=== PATIENT | male | born 1945 | race Caucasian/White ===

== ENCOUNTER → 2018-12-13 | Outpatient (CLI) | payer OTHER ==
[~2018-12-13] VITALS: Ht 175.3 cm; Wt 106.6 kg
[~2018-12-13] MED LIST: CELEXA20 MG PO; CENTRUM SILVER1 EAC4 PO; LEVAQUIN 500 M500 M2 PO; LEVOXYL112 MCG PO; PRAVACHOL20 MG PO
--- NOTE | 2018-12-14 14:06 | PATH ---
[facility] [address] [place] [address] PATHOLOGY RPT PROCEDURE Name: JOAOROBERTA Room #: REG BAUTISTA Geller#: [id number] ������������������ Admission: 12/13/18 ������������������ Date of : 47 Discharge: Report #: [id number] Path Case #: [id number] [facility] Accession Number: [id number] . 01 Material submitted: . PART A: colon - BIOPSY POLYP AT ASCENDING COLON. Modifiers: ascending PART B: colon - BIOPSY POLYP AT SIGMOID COLON X2. Modifiers: sigmoid . 01 Clinical history: . Pre-OP DX: Hematochezia Post-OP DX: Colon polyps, diverticulosis, hemorrhoid . 02 Diagnosis: A. "BX polyp at ascending colon", biopsy: - Tubular adenoma; no high-grade dysplasia. . B. "BX polyp at sigmoid colon x2", biopsy: - Hyperplastic polyp. (CLW:luz; 12/14/2018) QTP/12/14/2018 . 02 Electronically signed: . Reva Franklin MD, Pathologist NPI- [id number] . 01 Gross description: . A. Received in formalin labeled "Roberta Lawrence, BX polyp at ascending colon," is a single segment of moulton soft tissue measuring 0.4 cm in maximum dimension. The specimen is entirely submitted in cassette A1. . B. Received in formalin labeled "Roberta Lawrence, BX polyp at sigmoid colon x2," are 2 segments of moulton soft tissue measuring 0.7 x 0.3 x 0.2 cm in aggregate dimensions and ranging from 0.3 to 0.4 cm in maximum dimension. The specimen is submitted entirely in cassette B1. (TSD; 12/13/2018) TOB/TOB . 02 Pathologist provided ICD-10: D12.2, K63.5 . 02 CPT . 598205, [id number] Specimen Comment: A courtesy copy of this report has been sent to Specimen Comment: [phone], . Specimen Comment: Report sent to / DR LINK Performed at: [address] [place] [address] PATHOLOGY RPT PROCEDURE Name: ROBERTA LAWRENCE Room #: REG BAUTISTA Geller#: [id number] ������������������ Admission: 12/13/18 ������������������ Date of : 47 Discharge: Report #: [id number] Path Case #: [id number] [address] [facility] [address], [place], [place] [id number] MD Chon Joseph MD Phone: [phone] Performed at: [address] [id number] MD Comfort Negrete MD Phone: [phone]
== END | disposition home or self-care (01) ==
LOC: GI 10:03
DX: D12.2 Benign neoplasm of ascending colon (principal); K63.5 Polyp of colon; K57.30 Diverticulosis of large intestine without perforation or abscess without bleeding; K64.8 Other hemorrhoids; G47.30 Sleep apnea, unspecified; F41.9 Anxiety disorder, unspecified; E03.9 Hypothyroidism, unspecified; E78.00 Pure hypercholesterolemia, unspecified; Z79.899 Other long term (current) drug therapy; Z98.890 Other specified postprocedural states
CPT/HCPCS: 62110; 62900